=== PATIENT | male | born 1995 | race African-American/Black ===

== ENCOUNTER 2020-06-23 20:08 | Inpatient (IN) | payer SELFPAY ==
[~2020-06-23 20:08] MED LIST: Iopamidol-370 76% 500 ML 1 ML ONE
[2020-06-23] MEDS ORDERED: Dexamethasone 10 MG/ML VIAL ONE (22:09)
[2020-06-23] MEDS ORDERED: Ondansetron PF 4 MG/2 ML Vial ONE (22:09)
[2020-06-23] MEDS ORDERED: Ketorolac Tromethamine 30 MG/ML VIAL ONE (22:09)
[2020-06-23] MEDS ORDERED: Clindamycin/D5W 900 mg/50 ml Premix Bag ONE (22:11)
--- NOTE | 2020-06-23 22:46 | CT ---
CT neck with IV contrast HISTORY: Throat pain. Abscess. FINDINGS: The epiglottis has a normal appearance. Airway is patent. Prominent soft tissue swelling at the level of the tonsils bilaterally. Lobular slightly above fluid density collections centered at the tonsillar inflammation measure up to 2.7 cm x 1.7 cm x 1.3 cm on the right and 2.7 cm x 2.6 cm x 1.3 cm on the left. Reactive appearing lymph nodes along each jugular chain. Thyroid gland has normal appearance. Calcified mediastinal lymph nodes are consistent with healed granulomatous disease. There is bovine o rigin of the great vessels at the aortic arch. Mucous retention cysts within each maxillary sinus. IMPRESSION : Bilateral tonsillar abscesses.
[2020-06-23 23:47] LABS: ALT (SGPT) 7 U/L (8-55); AST (SGOT) 17 U/L (5-34); Alkaline Phosphatase 45 U/L (40-110); Anion Gap 16 mmol/L (10-20); BUN (Urea Nitrogen) 35 mg/dL (8.9-20.6); Bilirubin, Total 1.6 mg/dL (0.2-1.2); Calc. Creatinine Clearance 0 mL/min (70-130); Calcium 8.7 mg/dL (7.8-10.44); Carbon Dioxide 25 mmol/L (22-29); Chloride 109 mmol/L (98-107); Globulin 4.1 g/dL (2.4-3.5); Glucose 117 mg/dL (70-105); Potassium 4.7 mmol/L (3.5-5.1); Protein, Total 8.1 g/dL (6.0-8.3); Sodium 145 mmol/L (136-145)
[2020-06-24 00:06] LABS: Band 4 % (5-11); Hemoglobin 13.7 g/dL (14.0-18.0); Lymphocytes 48 % (21-51); MDiff Complete? YES; Mean Corpuscular HGB CONC 31.7 g/dL (32.0-36.0); Mean Corpuscular Hemoglobin 30.3 pg (27.0-31.0); Mean Corpuscular Volume 95.7 fL (78.0-98.0); Mean Platelet Volume 9.8 fL (7.4-10.4); Monocytes 12 % (0-10); Neutrophil 36 % (42-75); Platelet Count 171 thou/uL (130-400); RBC Distribution Width 10.9 % (11.5-14.5); Red Blood Cell (RBC) Count 4.52 mill/uL (4.70-6.10); White Blood Cell (WBC) Count 13.4 thou/uL (4.8-10.8)
[2020-06-24] MEDS ORDERED: Ondansetron PF 4 MG/2 ML Vial IVP PRN (01:56)
[2020-06-24] MEDS ORDERED: Sodium Chloride 0.9% 1,000 ML IV SCH (02:00)
--- NOTE | 2020-06-24 02:14 | PDOC.HHP ---
Hospitalist HPI History of Present Illness: ADMISSION DATE: 06/24/2020 TIME OF ASSESSMENT:0130 PRIMARY CARE PHYSICIAN: None CHIEF COMPLAINT: Throat swelling and pain HPI: This is a 25-year-old gentleman who presents emergency department with complaints of throat swelling and pain for which she was seen at the [facility] urgent care facility the day before yesterday. He received a dose of IV antibiotics as well as steroids and then discharged home on oral antibiotics. He was advised to follow-up with an ENT as an outpatient however once he called to set up an appointment he was told the office was closed due to the weather. He received 2 doses of p.o. antibiotics at home. He had been advised to come into the emergency department. Patient states that he has had occasional vomiting and difficulty with swallowing but he seems to be feeling significantly better since receiving antibiotics in the emergency department. Denies experiencing any difficulty with his breathing. No complaints of stridor or daxa oling due to difficulty swallowing saliva. He has had significantly diminished p.o. intake due to pain and swelling. Reports having similar infection in 2018 but apart from that has never tonsillar infections. ED COURSE: In the ED his blood pressure was initially low at 102/67 however that improved to 126/66. He is afebrile. Sats of 97% on room air. He had a CT of the neck done in the emergency department showing bilateral tonsillar abscesses. These are measuring 2.7 x 1.7 x 1.3 cm on the right and 2.7 x 2.6 x 1.3 cm on the left. Reactive appearing lymph nodes on each jugular chain noted. Per ED notes the case was discussed with Dr. Prajapati, ENT, who advised admission with continuous pulse ox monitoring Decadron and clindamycin IV with plans to evaluate him in the morning for possible surgery. Labs obtained showed a white cell count of 13.4, hemoglobin 13.7, hematocrit 43.3, platelets 171, neutrophils 36%, bands 4%. Sodium 145, potassium 4.7, BUN 35, creatinine 1.62, GFR 64, glucose 117, calcium 8.7, total bilirubin is 1.6, AST 17, ALT 7, alk phos 45. Patient received 900 mg of clindamycin IV in the emergency department on 10 mg of Decadron IV. For his pain he received 30 mg of IV Toradol. Also given 1 L of normal saline given his reduced renal function. For nausea he received Zofran 4 mg IV. Allergies/Adverse Reactions: Allergy/AdvReac Type Severity Reaction Status Date / Time amoxicillin Allergy Unverified 06/24/20 02:00 Past History: PAST MEDICAL HISTORY: None PAST SURGICAL HISTORY: None SOCIAL HISTORY: Patient lives at home with his family. Denies any tobacco use, alcohol consumption or drug use. FAMILY HISTORY: Noncontributory ALLERGIES: No known drug allergies CURRENT MEDICATIONS: 1. Clindamycin 2. Medrol Dosepak Hospitalist Exam Vitals: Temp 98.7, HR 72, blood pressure 126/66, RR 16, O2 sat 97% on room air General Appearance: NAD, ill appearing Eye: PERRL, anicteric sclera ENT - other findings: Oropharynx erythematous, thrush over tongue, no exudates Neck: supple Heart: RRR, normal peripheral pulses Respiratory: CTAB (no stridor), no wheezes, no rales, no ronchi, normal chest expansion Gastrointestinal: soft, non-tender, non-distended, normal bowel sounds, no guarding, no rigidity Extremities: no edema Skin: normal turgor, no lesions, no rashes Neurological: cranial nerve grossly intact, normal sensation to touch, no weakness, no focal deficits, no new deficit Musculoskeletal: normal tone, normal strength, no muscle wasting Psychiatric: normal affect, normal behavior, A&O x 3 Hospitalist Results Result Diagrams: 06/23/20 23:20 06/23/20 23:20 Lab results: Laboratory Last Values WBC 13.4 thou/uL (4.8-10.8) H 06/23/20 23:20 RBC 4.52 mill/uL (4.70-6.10) L 06/23/20 23:20 Hgb 13.7 g/dL (14.0-18.0) L 06/23/20 23:20 Hct 43.3 % (42.0-52.0) 06/23/20 23:20 MCV 95.7 fL (78.0-98.0) 06/23/20 23:20 MCH 30.3 pg (27.0-31.0) 06/23/20 23:20 MCHC 31.7 g/dL (32.0-36.0) L 06/23/20 23:20 RDW 10.9 % (11.5-14.5) L 06/23/20 23:20 Plt Count 171 thou/uL (130-400) 06/23/20 23:20 MPV 9.8 fL (7.4-10.4) 06/23/20 23:20 Neutrophils % (Manual) 36 % (42-75) L 06/23/20 23:20 Band Neuts % (Manual) 4 % (5-11) L 06/23/20 23:20 Lymphocytes % (Manual) 48 % (21-51) 06/23/20 23:20 Monocytes % (Manual) 12 % (0-10) H 06/23/20 23:20 Sodium 145 mmol/L (136-145) 06/23/20 23:20 Potassium 4.7 mmol/L (3.5-5.1) 06/23/20 23:20 Chloride 109 mmol/L (98-107) H 06/23/20 23:20 Carbon Dioxide 25 mmol/L (22-29) 06/23/20 23:20 Anion Gap 16 mmol/L (10-20) 06/23/20 23:20 BUN 35 mg/dL (8.9-20.6) H 06/23/20 23:20 Creatinine 1.62 mg/dL (0.7-1.3) H 06/23/20 23:20 Estimated GFR (MDRD) 64 06/23/20 23:20 Glucose 117 mg/dL (70-105) H 06/23/20 23:20 Calcium 8.7 mg/dL (7.8-10.44) 06/23/20 23:20 Total Bilirubin 1.6 mg/dL (0.2-1.2) H 06/23/20 23:20 AST 17 U/L (5-34) 06/23/20 23:20 ALT 7 U/L (8-55) L 06/23/20 23:20 Alkaline Phosphatase 45 U/L (40-110) 06/23/20 23:20 Serum Total Protein 8.1 g/dL (6.0-8.3) 06/23/20 23:20 Albumin 4.0 g/dL (3.5-5.0) 06/23/20 23:20 Globulin 4.1 g/dL (2.4-3.5) H 06/23/20 23:20 Albumin/Globulin Ratio 1.0 g/dL (1.2-2.2) L 06/23/20 23:20 Hospitalist H&P A/P (1) SHILA (acute kidney injury) Code(s): N17.9 - ACUTE KIDNEY FAILURE, UNSPECIFIED Status: Acute (2) Peritonsillar abscess Code(s): J36 - PERITONSILLAR ABSCESS Status: Acute (3) Dysphagia Code(s): R13.10 - DYSPHAGIA, UNSPECIFIED Status: Acute (4) Odynophagia Code(s): R13.10 - DYSPHAGIA, UNSPECIFIED Status: Acute (5) Bandemia Code(s): D72.825 - BANDEMIA Status: Acute Plan: Continue IV antibiotics and steroids ENT consulted Maintain NPO Monitor O2 sats IV zofran prn for nausea/vomiting Nystatin s/s Monitor renal function Avoid nephrotoxic meds and continue IV fluids GI Prophylaxis with Famotidine DVT Prophylaxis with mechanical SCDs Baseline CXR ordered CODE STATUS FULL Case discussed with Dr. Ibrahim who agrees with plan as above
[2020-06-24 04:31] VITALS: BMI 23.6
[2020-06-24] MEDS ORDERED: Dexamethasone 10 MG/ML VIAL SLOW IVP SCH ×3 (07:00→22:00)
[2020-06-24] MEDS ORDERED: Lidocaine Viscous Sol 2% 15 ml UD Cup ONE (07:19)
[2020-06-24] MEDS ORDERED: Lidocaine 1% w/Epinephrine 1:100K 20 ML VIAL ONE (07:19)
[2020-06-24 07:26] LABS: Hemoglobin 14.7 g/dL (14.0-18.0); Mean Corpuscular HGB CONC 32.3 g/dL (32.0-36.0); Mean Corpuscular Hemoglobin 31.4 pg (27.0-31.0); Mean Corpuscular Volume 97.4 fL (78.0-98.0); Mean Platelet Volume 10.5 fL (7.4-10.4); Platelet Count 171 thou/uL (130-400); RBC Distribution Width 10.8 % (11.5-14.5); Red Blood Cell (RBC) Count 4.66 mill/uL (4.70-6.10); White Blood Cell (WBC) Count 15.8 thou/uL (4.8-10.8)
[2020-06-24 07:29] LABS: Lactic Acid 1.6 mmol/L (0.5-2.2)
[2020-06-24 07:33] LABS: Bilirubin, Direct 0.5 mg/dL (0.1-0.3); CRP (Inflammatory) 7.23 mg/dL (= or < 0.5)
[2020-06-24 07:39] LABS: ALT (SGPT) 8 U/L (8-55); AST (SGOT) 19 U/L (5-34); Albumin 4.6 g/dL (3.5-5.0); Alkaline Phosphatase 50 U/L (40-110); Anion Gap 17 mmol/L (10-20); BUN (Urea Nitrogen) 34 mg/dL (8.9-20.6); Bilirubin, Total 1.4 mg/dL (0.2-1.2); Calc. Creatinine Clearance 92 mL/min (70-130); Calcium 9.5 mg/dL (7.8-10.44); Carbon Dioxide 23 mmol/L (22-29); Chloride 111 mmol/L (98-107); Globulin 4.6 g/dL (2.4-3.5); Glucose 132 mg/dL (70-105); Protein, Total 9.2 g/dL (6.0-8.3); Sodium 146 mmol/L (136-145)
[2020-06-24] MEDS ORDERED: Zolpidem Tartrate 5 MG TAB PO PRN (07:53)
[2020-06-24] MEDS ORDERED: hydrALAZINE 20 MG/ML VIAL SLOW IVP PRN (07:53)
[2020-06-24] MEDS ORDERED: GUAIFENESIN SF SOLN 200 MG/10 ML UDCUP PO PRN (07:53)
[2020-06-24] MEDS ORDERED: Loratadine 10 MG TAB PO PRN (07:53)
[2020-06-24] MEDS ORDERED: Bisacodyl 5 MG TAB PO PRN (07:53)
[2020-06-24] MEDS ORDERED: Sodium Chloride 0.65% Nasal 44 ML BOT EA NARE PRN (07:53)
[2020-06-24] MEDS ORDERED: Cepastat Lozenges 1 LOZ PO PRN (07:53)
[2020-06-24] MEDS ORDERED: HYDROcodone/Acetaminophen 5/325 mg Tablet PO PRN (07:53)
[2020-06-24] MEDS ORDERED: Calcium Carbonate 500 MG ChewTAB PO PRN (07:53)
[2020-06-24] MEDS ORDERED: Ondansetron ODT 4 MG TAB SL PRN (07:53)
[2020-06-24] MEDS ORDERED: Loperamide HCl 2 MG CAP PO PRN (07:53)
[2020-06-24] MEDS ORDERED: Morphine 4 MG/ML VIAL SLOW IVP PRN (07:58)
[2020-06-24 08:05] LABS: Band 12 % (5-11); Lymphocytes 20 % (21-51); MDiff Complete? YES; Monocytes 5 % (0-10); Neutrophil 55 % (42-75); RBC Morphology Normal; Reactive Lymphocytes 8 % (0-10)
[2020-06-24] MEDS ORDERED: Clindamycin/D5W 900 mg/50 ml Premix Bag ONE (08:35)
[2020-06-24] MEDS ORDERED: Dexamethasone 4 mg/ml Vial ONE (08:36)
[2020-06-24] MEDS: Lactated Ringer's 1,000 ML IV SCH ×2 (08:38→11:00)
[2020-06-24] MEDS: Clindamycin/D5W 900 MG in Premix Bag 1 BAG IVPB SCH ×3 (08:38→21:06)
--- NOTE | 2020-06-24 10:52 | PDOC.HOSPP ---
- Subjective Encounter Date: 06/24/20 Encounter Time: 07:20 Subjective: Patient seen and examined. No new complaints. No overnight events - Objective Vital Signs & Weight: Vital Signs (12 hours) Pulse Resp BP Pulse Ox 06/24/20 09:35 99 06/24/20 09:30 61 16 124/75 99 Weight Weight 164 lb 14.492 oz Result Diagrams: 06/24/20 07:02 06/24/20 07:02 Radiology Reviewed by me: Yes Hospitalist ROS - Review of Systems ENT: reports: throat pain. denies: ear pain, ear discharge, nose pain, nose discharge, nose congestion, mouth pain, mouth swelling, throat swelling, other Respiratory: denies: cough, dry, shortness of breath, hemoptysis, SOB with excertion, pleuritic pain, sputum, wheezing, other Cardiovascular: denies: chest pain, palpitations, orthopnea, paroxysmal noc. dyspnea, edema, light headedness, other Gastrointestinal: denies: nausea, vomiting, abdominal pain, diarrhea, constipation, melena, hematochezia, other Genitourinary: denies: dysuria, frequency, incontinence, hematuria, retention, other Musculoskeletal: denies: neck pain, shoulder pain, arm pain, back pain, hand pain, leg pain, foot pain, other - Medication Medications: Active Medications Generic Name Dose Route Start Last Admin Trade Name Freq PRN Reason Stop Dose Admin Clindamycin Phosphate/Dextrose 50 mls @ 100 mls/hr 06/24/20 06:00 06/24/20 08:38 900 mg/ Device IVPB 50 mls Q8HR NISREEN Administration Lactated Ringer's 1,000 mls @ 125 mls/hr 06/24/20 08:00 06/24/20 08:38 Lactated Ringer's IV 1,000 mls .Q8H NISREEN Administration Hospitalist Exam Vitals: Vital Signs (12 hours) Pulse Resp BP Pulse Ox 06/24/20 09:35 99 06/24/20 09:30 61 16 124/75 99 Weight Weight 164 lb 14.492 oz General Appearance: NAD, awake alert Eye: PERRL, anicteric sclera ENT: normocephalic atraumatic, no oropharyngeal lesions Neck: supple, symmetric, no JVD Neck - other findings: Enlarged glands noted Heart: RRR, no murmur, no gallops, no rubs Respiratory: no wheezes, no rales, no ronchi Gastrointestinal: soft, non-tender, non-distended, normal bowel sounds Extremities: no clubbing, no edema Skin: normal turgor, no lesions Neurological: no focal deficits Musculoskeletal: normal tone, normal strength Psychiatric: normal affect, normal behavior Hosp A/P (1) Peritonsillar abscess Code(s): J36 - PERITONSILLAR ABSCESS Status: Acute (2) SHILA (acute kidney injury) Code(s): N17.9 - ACUTE KIDNEY FAILURE, UNSPECIFIED Status: Acute (3) Bandemia Code(s): D72.825 - BANDEMIA Status: Acute (4) Odynophagia Code(s): R13.10 - DYSPHAGIA, UNSPECIFIED Status: Acute - Plan old records reviewed/req, continue antibiotics, DVT proph w/SCDs Continue clindamycin Continue IV fluid with Ringer lactate at 125 mill per hour We will repeat labs tomorrow Change to inpatient status Pain control with [place] or morphine Medication reviewed and continue provide symptomatic and supportive care Diet as tolerated once cleared by ENT Continue dexamethasone for reducing swelling
[2020-06-24] MEDS: Famotidine/PF 20 mg/2ml Vial SLOW IVP SCH ×2 (11:00→21:06)
[2020-06-24] MEDS: Nystatin 500,000 UNITS/5 ML UDCUP SSW SCH ×4 (11:01→21:06)
[2020-06-24 13:29] LABS: SARS-CoV-2 PCR by NAA Not Detected (NotDetected)
[2020-06-25] MEDS: Lactated Ringer's 1,000 ML IV SCH ×3 (04:30→13:16)
[2020-06-25] MEDS: Clindamycin/D5W 900 MG in Premix Bag 1 BAG IVPB SCH ×3 (06:04→21:36)
[2020-06-25] MEDS: Dexamethasone 10 MG/ML VIAL SLOW IVP SCH (06:04)
[2020-06-25 06:30] LABS: #Lymphocytes 2.8 thou/uL (1.20-3.40); #Monocytes 1.4 thou/uL (0.11-0.59); #Neutrophils 9.7 thou/uL (1.40-6.50); %Basophils 0.2 % (0.0-1.0); %Eosinophils 0.1 % (0.0-10.0); %Lymphocytes 20.4 % (21.0-51.0); %Monocytes 9.9 % (0.0-10.0); %Neutrophils 69.4 % (42.0-75.0); Mean Corpuscular HGB CONC 33.2 g/dL (32.0-36.0); Mean Corpuscular Hemoglobin 32.3 pg (27.0-31.0); Mean Corpuscular Volume 97.4 fL (78.0-98.0); Mean Platelet Volume 10.3 fL (7.4-10.4); Platelet Count 167 thou/uL (130-400); RBC Distribution Width 10.8 % (11.5-14.5); Red Blood Cell (RBC) Count 3.73 mill/uL (4.70-6.10); White Blood Cell (WBC) Count 13.9 thou/uL (4.8-10.8)
[2020-06-25 06:36] LABS: Anion Gap 13 mmol/L (10-20); BUN (Urea Nitrogen) 27 mg/dL (8.9-20.6); Calc. Creatinine Clearance 98 mL/min (70-130); Calcium 8.7 mg/dL (7.8-10.44); Carbon Dioxide 29 mmol/L (22-29); Chloride 110 mmol/L (98-107); Glucose 117 mg/dL (70-105); Potassium 4.2 mmol/L (3.5-5.1); Sodium 148 mmol/L (136-145)
[2020-06-25] MEDS: Famotidine/PF 20 mg/2ml Vial SLOW IVP SCH ×2 (09:40→21:37)
[2020-06-25] MEDS: Nystatin 500,000 UNITS/5 ML UDCUP SSW SCH ×4 (10:22→21:37)
--- NOTE | 2020-06-25 15:58 | PDOC.HOSPP ---
- Subjective Encounter Date: 06/25/20 Subjective: Reports feeling well, he is able to eat and drink without any difficulty. - Objective Vital Signs & Weight: Vital Signs (12 hours) Temp Pulse Resp BP Pulse Ox 06/25/20 15:29 98.3 F 56 L 16 113/73 99 06/25/20 10:29 97.8 F 63 16 109/71 98 06/25/20 08:57 97.8 F 71 14 113/71 98 Weight Weight 164 lb 14.492 oz I&O: 06/24/20 06/25/20 06/26/20 06:59 06:59 06:59 Intake Total 1250 1080 Balance 1250 1080 Result Diagrams: 06/25/20 05:58 06/25/20 05:58 Hospitalist ROS - Medication Medications: Active Medications Generic Name Dose Route Start Last Admin Trade Name Freq PRN Reason Stop Dose Admin Dexamethasone 10 mg 06/25/20 07:00 06/25/20 06:04 Dexamethasone 10 Mg/Ml Vial SLOW IVP 10 mg 0700 NISREEN Administration Famotidine 20 mg 06/24/20 09:00 06/25/20 09:40 Famotidine/Pf 20 Mg/2ml Vial SLOW IVP 20 mg Q12HR NISREEN Administration Clindamycin Phosphate/Dextrose 50 mls @ 100 mls/hr 06/24/20 06:00 06/25/20 13:17 900 mg/ Device IVPB 50 mls Q8HR NISREEN Administration Nystatin 500,000 units 06/24/20 09:00 06/25/20 13:15 Nystatin 500,000 Units/5 Ml Udcup SSW 500,000 units QID NISREEN Administration Throat Lozenges 1 ysabel 06/24/20 07:53 06/25/20 09:40 Cepastat Lozenges 1 Ysabel PO 1 ysabel Q2H PRN Administration Sore Throat Hospitalist Exam Vitals: Vital Signs (12 hours) Temp Pulse Resp BP Pulse Ox 06/25/20 15:29 98.3 F 56 L 16 113/73 99 06/25/20 10:29 97.8 F 63 16 109/71 98 06/25/20 08:57 97.8 F 71 14 113/71 98 Weight Weight 164 lb 14.492 oz General Appearance: NAD Eye: PERRL, anicteric sclera ENT: normocephalic atraumatic, no oropharyngeal lesions Neck: supple, symmetric, no JVD Heart: RRR, no murmur, no gallops, no rubs Respiratory: CTAB, no wheezes, no rales, no ronchi Gastrointestinal: soft, non-tender, non-distended Extremities: no cyanosis, no clubbing Hosp A/P (1) SHILA (acute kidney injury) Code(s): N17.9 - ACUTE KIDNEY FAILURE, UNSPECIFIED Status: Acute (2) Peritonsillar abscess Code(s): J36 - PERITONSILLAR ABSCESS Status: Acute - Plan Plan for today 06/25 We will continue IV clindamycin for now and assess for possible discharge in the morning, I am in the process of contacting ENT to discuss if ENT has any further recommendations. I am also awaiting culture results. His creatinine is slightly above 1 he is eating appropriately I will recheck in the morning, this could be his baseline.
[2020-06-26 05:46] LABS: #Lymphocytes 3.4 thou/uL (1.20-3.40); #Neutrophils 5.5 thou/uL (1.40-6.50); %Eosinophils 0.1 % (0.0-10.0); %Lymphocytes 34.5 % (21.0-51.0); %Monocytes 9.6 % (0.0-10.0); %Neutrophils 55.8 % (42.0-75.0); Hemoglobin 11.1 g/dL (14.0-18.0); Mean Corpuscular Hemoglobin 29.7 pg (27.0-31.0); Mean Corpuscular Volume 95.7 fL (78.0-98.0); Mean Platelet Volume 10.4 fL (7.4-10.4); Platelet Count 192 thou/uL (130-400); RBC Distribution Width 10.6 % (11.5-14.5); Red Blood Cell (RBC) Count 3.74 mill/uL (4.70-6.10); White Blood Cell (WBC) Count 9.9 thou/uL (4.8-10.8)
[2020-06-26 06:03] LABS: Anion Gap 12 mmol/L (10-20); BUN (Urea Nitrogen) 21 mg/dL (8.9-20.6); Calc. Creatinine Clearance 111 mL/min (70-130); Calcium 8.8 mg/dL (7.8-10.44); Carbon Dioxide 30 mmol/L (22-29); Chloride 105 mmol/L (98-107); Glucose 100 mg/dL (70-105); Potassium 3.8 mmol/L (3.5-5.1); Sodium 143 mmol/L (136-145)
[2020-06-26] MEDS: Dexamethasone 10 MG/ML VIAL SLOW IVP SCH (06:25)
[2020-06-26] MEDS: Clindamycin/D5W 900 MG in Premix Bag 1 BAG IVPB SCH ×2 (06:25→13:39)
--- NOTE | 2020-06-26 06:32 | CON ---
DATE OF CONSULTATION: CHIEF COMPLAINT: Sore throat, odynophagia and difficulty swallowing. HISTORY OF PRESENT ILLNESS: A 25-year-old male patient presenting to the ER for inability to tolerate p.o., significant neck pain. Previously treated for strep throat with antibiotics. However, even though the patient is taking oral antibiotics, he developed increasing difficulty swallowing, increasing difficulty speaking and inability to tolerate pain, and patient presented to the emergency room. A CT scan was used to evaluate the neck and found to have bilateral peritonsillar abscesses and given his inability to tolerate p.o., his pain and bilateral abscesses, the patient was admitted to Medicine for IV antibiotics and ENT was consulted for peritonsillar abscess drainage. PAST MEDICAL HISTORY: Previous peritonsillar abscesses. PAST SURGICAL HISTORY: No head and neck surgeries. CURRENT MEDICATIONS: Please see electronic medical record. ALLERGIES: NO KNOWN DRUG ALLERGIES. SOCIAL HISTORY: Lives with a roommate. FAMILY HISTORY: Noncontributory. REVIEW OF SYSTEMS: SKIN: Negative. EYES: Negative. EARS, NOSE, AND THROAT: See HPI, otherwise negative. RESPIRATORY: Mildly short of breath with neck fullness, however, no gasping for breath. CARDIOVASCULAR: Negative. GASTROINTESTINAL: Negative. MUSCULOSKELETAL: Negative. NEUROLOGIC: Negative. HEMATOLOGIC/LYMPHATIC/IMMUNOLOGIC: Negative. ENDOCRINE: Negative. PHYSICAL EXAMINATION: GENERAL: Somnolent patient, in significant distress from the pain, however, alert and oriented x3 HEAD AND FACE: Normocephalic, atraumatic. No facial skin lesions. No maxillary tenderness or frontal tenderness. No parotid or submandibular masses or tenderness. EYES: Extraocular movements are intact. Pupils are round and reactive to light. No nystagmus on lateral gaze. EARS: Right and left pinna are normal. EACs are clear. No evidence of effusion. NOSE: External nose is normal. Nasal mucosa is healthy. Turbinates are healthy. No masses or lesions or drainage. ORAL CAVITY: Lips, teeth, tongue and gums are normal. Oral mucosa is tacky. The tongue and floor of mouth are soft. However, the soft palate, uvula, and tonsils are edematous and erythematous with white exudate on both sides bilaterally in the tonsillar fossa. The anterior pillar has fullness and prominence bilaterally. NECK: Mild lymphadenopathy bilaterally. Trachea is midline. Thyroid normal size without apparent nodules. NEUROLOGIC: Cranial nerves 2 through 12 are grossly intact. Mood and affect are normal. However, the patient is noted to be in distress from pain. DATA: CT scan reveals a fluid collection bilaterally in both tonsils, both peritonsillar spaces, right greater than left with echogenicity in the center, likely leading us to believe that there is a drainable fluid collection bilaterally. PROCEDURE: Drainage of bilateral peritonsillar abscesses. The patient's throat was anesthetized first with viscous lidocaine gargling and swishing viscous lidocaine in the throat and then spitting after several minutes. Next, the patient's tongue was then retracted inferiorly and 1% lidocaine with 1:100,000 epinephrine was injected in 4 places, 2 on each side to anesthetize the anterior tonsillar pillar and the peritonsillar spaces bilaterally. After adequate anesthesia was complete, the right side was addressed first. An 18-gauge needle on a 10 mL syringe was placed in the peritonsillar space and immediately 70 mL of purulence was removed. The purulence was then placed in a culture swab container and sent for culture. Next, the left side addressed. An 18-gauge needle on a 10 mL syringe was used to draw out roughly 5 mL of purulence, which was also sent for culture. After this was completed, the patient was given some liquid to rinse the back of his throat, and after this was completed, an 11 blade scalpel was used where the 2 puncture cohen were noted to make an incision on the right side first with hemostats placed in the incision to spread and probe for any loculations or pockets that could not be drained and the resulting fluid was then suctioned with a Yankauer suction. The same procedure was performed on the left side with an 11 blade scalpel, used to make a small incision at the area of the 18-gauge needle puncture and previous drainage of purulence on the left side and then a hemostat was then used to probe that space and spread and to identify any potential loculations of infected fluid. The fluid in the patient's oropharynx was then suctioned and then the patient irrigated. His oral cavity inspected. There was no bleeding in the patient's oral cavity and oropharynx was much more open after the removal of purulent fluid. The patient tolerated the procedure well and was then allowed to go upstairs to his hospital room. ASSESSMENT AND PLAN: A 25-year-old male patient presenting to the ER with bilateral peritonsillar abscesses, currently on antibiotics, however, experiencing increasing pain and inability to tolerate p.o. Bilateral peritonsillar abscesses were drained and fluid was sent for culture. Recommend IV antibiotics and tailoring antibiotic regimen to culture the fluid. Recommend IV hydration and starting with liquids and hydrate the patient and advancing to a soft diet. Recommend pain control per primary team. Thank you for this consultation. Please call [phone] with further questions. Job ID: [id number]
[2020-06-26] MEDS: Famotidine/PF 20 mg/2ml Vial SLOW IVP SCH (08:18)
[2020-06-26] MEDS: Nystatin 500,000 UNITS/5 ML UDCUP SSW SCH ×2 (08:18→13:38)
--- NOTE | 2020-06-26 15:54 | PDOC.DS.DS ---
Provider Date of Admission: 06/24/20 07:56 Date of Discharge: 06/26/20 Admitting Provider: Aaron Ibrahim MD Consultations: ENT Primary Care Physician: Unknown Course Hospital Course: This is a 25-year-old gentleman who presents emergency department with complaints of throat swelling and pain for which she was seen at the [facility] urgent care facility the day before yesterday. He received a dose of IV antibiotics as well as steroids and then discharged home on oral antibiotics. He was advised to follow-up with an ENT as an outpatient however once he called to set up an appointment he was told the office was closed due to the weather. He received 2 doses of p.o. antibiotics at home. He had been advised to come into the emergency department. Initially patient had slightly increased creatinine but with hydration it normalized. Patient had bilateral peritonsillar abscesses drained by ENT, after this procedure he did very well and her past 24 hours he has been able to eat food and today he feels better than yesterday, he is eager to go home. I did speak with the ENT Dr. Hussein and with the microbiology lab, his culture unofficially showing normal oropharyngeal raimundo, since he did improve on clindamycin and since he is very eager to go home, I will discharge him today on a 10-day course of clindamycin, to follow-up with Dr. Quijano for possible future tonsillectomy, patient verbalized understanding and agreement. Resuscitation Status: 06/24/20 01:56 Resuscitation Status Routine Co-Sign Provider: Resuscitation Status: FULL: Full Resuscitation Lab Results: 06/26/20 05:25 06/26/20 05:25 Abnormal Lab Results - Last 48 hrs 06/25/20 05:58: Sodium 148 H, Chloride 110 H, BUN 27 H 06/25/20 05:58: WBC 13.9 H, RBC 3.73 L, Hgb 12.0 L, Hct 36.3 L, MCH 32.3 H, RDW 10.8 L, Lymphocytes % 20.4 L, Neutrophils # 9.7 H, Monocytes # 1.4 H 06/26/20 05:25: Carbon Dioxide 30 H, BUN 21 H 06/26/20 05:25: RBC 3.74 L, Hgb 11.1 L, Hct 35.8 L, MCHC 31.0 L, RDW 10.6 L, Mo nocytes # 1.0 H Microbiology - Entire Visit 06/24/20 08:03 Throat - Pending Bacterial Culture - Preliminary 06/24/20 08:03 Throat - Pending Bacterial Culture - Preliminary Vitals: Vital Signs (12 hours) Temp Pulse Resp BP Pulse Ox 06/26/20 10:34 98.7 F 50 L 20 113/65 20 L 06/26/20 08:15 99 06/26/20 07:35 98.4 F 63 20 126/77 99 Weight Weight 164 lb 14.492 oz Physical Exam: The patient was seen and examined on the day of discharge. General Appearance: NAD, awake alert Eye: PERRL, anicteric sclera ENT: normocephalic atraumatic Neck: supple, symmetric, no JVD Respiratory: CTAB, no wheezes, no rales Cardiovascular: RRR, no murmur, no gallops Gastrointestinal: soft, non-tender, non-distended, normal bowel sounds Extremities: no cyanosis, no clubbing Problem (1) SHILA (acute kidney injury) Code(s): N17.9 - ACUTE KIDNEY FAILURE, UNSPECIFIED Status: Acute (2) Peritonsillar abscess Code(s): J36 - PERITONSILLAR ABSCESS Status: Acute Time Spent in discharge related activities (mins): 45 Plan Prescriptions: Clindamycin HCl [Cleocin] 600 mg PO TID 10 Days #60 capsule Home Medications: Medication Instructions Recorded Confirmed Type Clindamycin HCl [Cleocin] 600 mg PO TID 10 Days #60 capsule 06/26/20 Rx Allergies: amoxicillin Allergy (Unverified 06/25/20 09:40) Activity:: Activity as Tolerated Referrals: Horace Hussein MD [Active] - Unknown,Unknown [Primary Care Provider] - Disposition: HOME
[2020-06-26 16:07] VITALS: BP 114/73; TEMP 98
--- NOTE | 2020-06-26 21:20 | EKG ---
Test Reason : Blood Pressure : / mmHG Vent. Rate : 048 BPM Atrial Rate : 048 BPM P-R Int : 128 ms QRS Dur : 098 ms QT Int : 420 ms P-R-T Axes : 073 063 048 degrees QTc Int : 375 ms Marked sinus bradycardia Moderate voltage criteria for LVH, may be normal variant ST elevation, consider early repolarization, pericarditis, or injury Abnormal ECG No previous ECGs available Confirmed by PARRISH PINEDA, SFrankie ([id number]) on 06/26/2020 9:20:43 PM Referred By: Confirmed By:DR. Ko SENIOR MD
== END 2020-06-26 16:30 | disposition home or self-care (01) | DRG 153 ==
LOC: ERS 20:08 → ERHOLD 23:34 → OBSVTOIN 06-24 07:56 → SJJU 06-24 09:21
PROVIDERS: ADMIT Student in an Organized Health Care Education/Training Program; ATTEND Internal Medicine
PROC: 0C9P3ZZ Drainage of Tonsils, Percutaneous Approach (ICD-10-PCS; principal; 2020-06-25)
DX: J36 Peritonsillar abscess (principal); N17.9 Acute kidney failure, unspecified; D72.825 Bandemia; Z20.822 Contact with and (suspected) exposure to COVID-19; Z88.1 Allergy status to other antibiotic agents
CPT/HCPCS: 36415; 70491; 80048; 80053; 82248; 83605; 85025; 86140; 87070; 87077; 87205; 87635; 93005; 93010; 94760; 96365; 96375; G0378; J1100; J1885; J2405; J3490; Q9967; S0028; U0003; U0005